=== PATIENT | female | born 1970 | race Caucasian/White ===

== ENCOUNTER 2018-03-16 20:31 | Emergency (ER) | payer BC ==
[2018-03-16] MEDS ORDERED: Acetaminophen/HYDROcodone 325-5 MG Tab ONE (20:50)
[2018-03-16] MEDS ORDERED: Ketorolac 60 MG/2 ML SDV IM ONE (20:58)
[2018-03-16] MEDS ORDERED: Ketorolac 10 MG Tab ONE (21:00)
[2018-03-16] MEDS ORDERED: HYDROmorphone 2 MG/ML SDV IM ONE (21:07)
[2018-03-16] MEDS ORDERED: HYDROmorphone 2 MG/ML Syringe IVPUSH ONE (21:13)
[2018-03-16] MEDS ORDERED: Sodium Chloride 0.9% 1,000 ML IV SCH (21:15)
--- NOTE | 2018-03-16 21:19 | EDM.PDOC ---
ED HPI GENERAL MEDICAL PROBLEM - General Chief Complaint: General Stated Complaint: KIDNEY STONE Time Seen by Provider: 03/16/18 20:45 Source of Information: Reports: Patient History Limitations: Reports: No Limitations - History of Present Illness INITIAL COMMENTS - FREE TEXT/NARRATIVE: According to patient she has been having pain in her right midback for past 3 days. pain was dull achy type and constant. she taught it was from her pneumonia which she had recently diagnosed with. Apparently in the past 30 minutes , she has been having excruciating pain in her right midback. Pain radiates into her right groin and vaginal region.Rates pain at 10/10 . has been nauseous from pain. no fever or chills. no chest pain. No shortness of breath. no dysuria or hematuria. Onset: Today Onset Date: 03/16/18 Onset Time: 20:30 Location: Reports: Back Quality: Reports: Ache Severity: Severe Improves with: Reports: None Worsens with: Reports: None Associated Symptoms: Reports: Nausea/Vomiting. Denies: Confusion, Chest Pain, Cough, Diaphoresis, Fever/Chills, Headaches, Loss of Appetite, Rash, Seizure, Shortness of Breath, Syncope, Weakness - Related Data Allergies Allergy/AdvReac Type Severity Reaction Status Date / Time erythromycin base Allergy Rash Verified 05/23/15 11:31 lisinopril Allergy Facial Verified 05/23/15 11:31 Swelling Sulfa (Sulfonamide Allergy Rash Verified 05/23/15 11:31 Antibiotics) Home Meds: Home Meds Albuterol Sulfate [Proventil Hfa] 1 inh INH DAILY PRN 05/23/15 [History] Benazepril HCl 20 mg PO DAILY 05/23/15 [History] Chlorthalidone 50 mg PO DAILY 05/23/15 [History] Metoprolol Succinate [Toprol XL] 25 mg PO DAILY 05/23/15 [History] Past Medical History - Past Surgical History Other Female Surgeries/Procedures: kidney stones Social & Family History - Living Situation & Occupation Living situation: Reports: Occupation: Employed ED ROS GENERAL - Review of Systems Review Of Systems: See Below Constitutional: Denies: Fever, Chills, Malaise, Weakness, Night Sweats, Diaphoresis HEENT: Denies: Rhinitis, Throat Pain, Throat Swelling, Vision Change Respiratory: Denies: Shortness of Breath, Wheezing, Pleuritic Chest Pain, Cough , Sputum Cardiovascular: Denies: Chest Pain, Lightheadedness GI/Abdominal: Reports: Abdominal Pain, Flatus, Nausea, Vomiting. Denies: Constipation, Diarrhea : Reports: Flank Pain Musculoskeletal: Denies: Joint Pain, Joint Swelling Skin: Denies: Bruising, Pruritis, Rash Neurological: Denies: Confusion, Dizziness, Headache ED EXAM, GENERAL - Physical Exam Exam: See Below Exam Limited By: No Limitations General Appearance: Alert, WD/WN, Moderate Distress Eye Exam: Bilateral Eye: EOMI, PERRL Ears: Normal External Exam, Normal Canal, Hearing Grossly Normal, Normal TMs Ear Exam: Bilateral Ear: Auricle Normal, Canal Normal, TM normal Nose: Normal Inspection, Normal Mucosa, No Blood Throat/Mouth: Normal Inspection, Normal Lips, Normal Teeth, Normal Gums, Normal Oropharynx, Normal Voice, No Airway Compromise Head: Atraumatic, Normocephalic Neck: Normal Inspection, Supple, Non-Tender, Full Range of Motion Respiratory/Chest: No Respiratory Distress, Lungs Clear, Normal Breath Sounds, No Accessory Muscle Use, Chest Non-Tender Cardiovascular: Normal Peripheral Pulses, Regular Rate, Rhythm, No Edema, No Gallop, No JVD, No Murmur, No Rub GI/Abdominal: Normal Bowel Sounds, Soft, Non-Tender, No Organomegaly, No Distention, No Abnormal Bruit, No Mass Back Exam: Normal Inspection, Full Range of Motion, CVA Tenderness (R). No: Paraspinal Tenderness, Vertebral Tenderness Extremities: Normal Inspection, Normal Range of Motion Course - Vital Signs Text/Narrative:: Pt appears to be passing a renal stone. She did receive toradol 60mg followed by dilaudid 1mg im and zofran 4mg. She was taken to radiology to get CT stone protocol. CT does show 2mm renal stone at the right UV junction. Pt was still in pain. received dilaudid 1mg IV and also was started on NS 1 litre Iv fluid.Pt 's pain is down from 10/10 to 1/10 now.Pain has significantly improved.CBC and BMP are normal. UA shows moderate blood. Pt reassured that she probably will pass the stone in next 4-6 hrs, maximum within 24 hrs. I have advised her to drink plenty of fluids. Also Sent home on toradol 10mg and vicodin 5/325 to alternate every 4 hrs.Advised to strain urine and get collect stone for analysis and send to lab. - Orders/Labs/Meds Orders: Active Orders 24 hr Category Date Time Status Kidney Stone Protocol [CT] Stat Exams 03/16/18 20:57 Ordered BASIC METABOLIC PANEL,BMP [CHEM] Stat Lab 03/16/18 21:02 Received HYDROmorphone [Dilaudid] Med 03/16/18 21:13 Once 1 mg IVPUSH ONETIME ONE Sodium Chloride 0.9% [Normal Saline] 1,000 ml Med 03/16/18 21:15 Ordered IV ASDIRECTED Labs: Laboratory Tests 03/16/18 Range/Units 21:02 WBC 9.7 (4.0-11.0) K/uL RBC 4.70 (3.80-5.80) M/uL Hgb 11.8 (11.5-16.5) g/dL Hct 36.1 L (37.0-47.0) % MCV 77 (76-96) fL MCH 25.1 L (27.0-32.0) pg MCHC 32.7 (31.0-35.0) g/dL RDW 16.1 H (11.0-16.0) % Plt Count 314 (150-500) K/uL MPV 10.7 H (6.0-10.0) fL Neut % (Auto) 50.0 (45.0-70.0) % Lymph % (Auto) 35.3 (20.0-40.0) % [place] % (Auto) 10.0 (3.0-10.0) % Eos % (Auto) 4.2 (1.0-5.0) % Baso % (Auto) 0.5 (0.0-0.5) % Neut # (Auto) 4.87 (2.00-7.50) K/uL Lymph # (Auto) 3.43 (1.50-4.00) K/uL [place] # (Auto) 0.97 H (0.20-0.80) K/uL Eos # (Auto) 0.41 H (0.04-0.40) K/uL Baso # (Auto) 0.05 (0.02-0.10) K/uL Meds: Medications Discontinued Medications Generic Name Dose Route Start Last Admin Trade Name Freq PRN Reason Stop Dose Admin Hydromorphone HCl 1 mg 03/16/18 21:07 Dilaudid IM 03/16/18 21:08 ONETIME ONE Ketorolac Tromethamine 60 mg 03/16/18 20:58 Toradol IM 03/16/18 20:59 ONETIME ONE Departure - Departure Time of Disposition: 22:30 Disposition: Home, Self-Care 01 Condition: Fair Clinical Impression: Renal calculus, right - Discharge Information *PRESCRIPTION DRUG MONITORING PROGRAM REVIEWED*: Not Applicable *COPY OF PRESCRIPTION DRUG MONITORING REPORT IN PATIENT JOVANI: Not Applicable Additional Instructions: CT shows 2mm right UV junction stone. CBC and BMP are normal. UA shows moderate blood. Pt reassured that she probably will pass the stone in next 4-6 hrs, maximum within 24 hrs. I have advised her to drink plenty of fluids. Also Sent home on toradol 10mg and vicodin 5/325 to alternate every 4 hrs. Advised to strain urine and get collect stone for analysis and send to lab. - Problem List & Annotations (1) Renal calculus, right SNOMED Code(s): 95898005 Code(s): N20.0 - CALCULUS OF KIDNEY Status: Acute - Problem List Review Problem List Initiated/Reviewed/Updated: Yes - My Orders Last 24 Hours: My Active Orders 03/16/18 20:57 Kidney Stone Protocol [CT] Stat 03/16/18 21:02 BASIC METABOLIC PANEL,BMP [CHEM] Stat 03/16/18 21:13 HYDROmorphone [Dilaudid] 1 mg IVPUSH ONETIME ONE 03/16/18 21:15 Sodium Chloride 0.9% [Normal Saline] 1,000 ml IV ASDIRECTED - Assessment/Plan Last 24 Hours: My Active Orders 03/16/18 20:57 Kidney Stone Protocol [CT] Stat 03/16/18 21:02 BASIC METABOLIC PANEL,BMP [CHEM] Stat 03/16/18 21:13 HYDROmorphone [Dilaudid] 1 mg IVPUSH ONETIME ONE 03/16/18 21:15 Sodium Chloride 0.9% [Normal Saline] 1,000 ml IV ASDIRECTED Assessment:: Right UVJ renal stone Plan: Pt appears to be passing a renal stone. She did receive toradol 60mg followed by dilaudid 1mg im and zofran 4mg. She was taken to radiology to get CT stone protocol. CT does show 2mm renal stone at the right UV junction. Pt was still in pain. received dilaudid 1mg IV and also was started on NS 1 litre Iv fluid.Pt 's pain is down from 10/10 to 1/10 now.Pain has significantly improved.CBC and BMP are normal. UA shows moderate blood. Pt reassured that she probably will pass the stone in next 4-6 hrs, maximum within 24 hrs. I have advised her to drink plenty of fluids. Also Sent home on toradol 10mg and vicodin 5/325 to alternate every 4 hrs.Advised to strain urine and get collect stone for analysis and send to lab.
--- NOTE | 2018-03-17 09:10 | CT ---
UNENHANCED ABDOMEN AND PELVIC CT, 03/16/18 Multislice acquisition through the abdomen and pelvis without IV or oral contrast was performed. No priors . There are linear densities in both lung bases consistent with linear atelectasis or fibrosis. The lung bases are otherwise clear. There is diffuse fatty infiltration of the liver. No focal hepatic lesions. The gallbladder appears normal. The spleen appears normal. The pancreas appears normal. The right and left adrenals appear normal. No nephrocalcinosis or nephrolithiasis. There is a 2 mm distal ureteral calculus on the right located in the distal right ureter near the ureterovesical junction. There is hydronephrosis and hydroureter proximal to it consistent with obstruction. The right kidney also appears mildly swollen compared to the left most likely related to obstruction. There is a small amount of fluid within the bladder. It appears grossly normal. The appendix is not dilated. No evidence of appendicitis. There is a moderate amount of gas and stool present in the ascending, transverse , and proximal descending colon. There is a small umbilical hernia containing fat. No free air. No free fluid. No dilated loops of bowel. No adenopathy. No aortic aneurysm. IMPRESSION: 2 mm distal ureteral calculus on right with obstruction. See above description. Other findings as discussed above. The patient's physician was notified of the findings by [facility] preliminary radiology report. [id number] [facility]
== END 2018-03-16 22:27 | disposition home or self-care (01) ==
LOC: LB.ED 20:31
DX: N13.2 Hydronephrosis with renal and ureteral calculous obstruction (principal); Z79.899 Other long term (current) drug therapy; Z88.1 Allergy status to other antibiotic agents; Z88.2 Allergy status to sulfonamides
CPT/HCPCS: 36415; 74176; 80048; 81001; 85025; 96361; 96372; 96374; 99284; A9270; J1170; J1885; J7030

== ENCOUNTER 2019-06-03 11:00 | Day surgery (SDC) | payer BC ==
[~2019-06-03 11:00] MED LIST: Metoclopramide 10 MG/2 ML SDV IV PRN; Sodium Chloride 0.9% 1,000 ML IV SCH
[2019-06-03] MEDS ORDERED: Propofol 1,000 MG/100 ML SDV ONE (13:00)
--- NOTE | 2019-06-03 13:22 | OR ---
DATE OF OPERATION: 06/03/2019 SURGEON: Landon Erazo MD PREOPERATIVE DIAGNOSIS: Screening colonoscopy. POSTOPERATIVE DIAGNOSIS: Screening colonoscopy. PROCEDURE: Colonoscopy. ANESTHESIA: MAC. ESTIMATED BLOOD LOSS: None. COMPLICATIONS: None. INDICATION FOR THE PROCEDURE: The patient is a 48-year-old female here today for a colonoscopy. She has had some blood on the toilet paper once with wiping, otherwise no blood dripping in the toilet bowl. No blood in the stool. She is here today for her first screening colonoscopy. DESCRIPTION OF PROCEDURE: Informed consent was obtained from the patient. The patient was taken to the operating room and placed on the table in left lateral decubitus position. Monitored anesthesia care was administered. Digital rectal exam performed and was normal. Colonoscope was then advanced through the anus directed toward the cecum. Cecum was reached and identified by appendiceal orifice as well as ileocecal valve. Colonoscope was then slowly withdrawn. No masses. No polyps. No areas of ischemia or inflammation. No diverticula noted. Retroflexion was performed in the rectum showing some enlarged grade 2 internal hemorrhoids. No sequela of bleeding noted. The colonoscope was then withdrawn. FINDINGS: Normal colonoscopy with grade 2 internal hemorrhoids. RECOMMENDATION: Would recommend repeat screening colonoscopy in 10 years. For her hemorrhoids, would recommend high-fiber diet and plenty of water. If she does have recurrent issues with bleeding, may be seen in clinic for anoscopy and hemorrhoid banding. BHUPINDER/SEGUNDO /[id number]
== END 2019-06-03 14:22 | disposition home or self-care (01) ==
LOC: LB.SDS 11:00
PROVIDERS: ATTEND Surgery
DX: Z12.11 Encounter for screening for malignant neoplasm of colon (principal); K64.1 Second degree hemorrhoids; I10 Essential (primary) hypertension; Z88.2 Allergy status to sulfonamides; Z88.1 Allergy status to other antibiotic agents
CPT/HCPCS: G0121; J2704; J2765; J7030